=== PATIENT | female | born 1955 | race Caucasian/White ===

== ENCOUNTER → 2020-06-22 | Outpatient (CLI) | payer OTHER ==
[~2020-06-22] MED LIST: APIDRA SOL100 UNIT/1 SQ; ASPIRIN 325MG325 MG PO; ASPIRIN EC81 MG PO; AUGMENTIN 875-1 EACH PO; BYDUREON P2 MG/0.65 SQ; CIPRO500 MG PO; CLINDAMYCIN HC300 MG PO; CYMBALTA60 MG PO; GLUCOSE4 GM PO; HUMALOG 10100 UNITS/ SC; ILEVRO1.7 ML EYERT; IMODIUM CAP 2 MG2 MG PO; IPRAT-ALBUT 0.5-3 ML INH; JARDIANCE25 MG PO; LANTUS SOL100 UNIT/1 SQ; LEVAQUIN500 MG PO; LISINOPRIL30 MG PO; LYRICA200 MG PO; PERCOCET 10-321 EACH PO; PLAVIX 75 MG TA75 MG PO; PLETAL 100 MG100 MG PO; PRAVASTATIN SOD80 MG PO; PREDNISOLONE ACE5 ML EYERT; SYMBICORT 16010.2 GM INH; VENTOLIN HFA 66.7 GM INH; VITAMIN C500 M1 PO
== END ==
LOC: KOH-I 14:45
DX: M14.671 Charcot's joint, right ankle and foot (principal); M14.672 Charcot's joint, left ankle and foot; M19.071 Primary osteoarthritis, right ankle and foot; M19.072 Primary osteoarthritis, left ankle and foot
CPT/HCPCS: 73630

== ENCOUNTER → 2020-07-06 | Outpatient (CLI) | payer OTHER | LOC: NM 07-02 09:55 | DX: M86.9 Osteomyelitis, unspecified (principal); R93.7 Abnormal findings on diagnostic imaging of other parts of musculoskeletal system | CPT/HCPCS: 78315; A9503 ==

== ENCOUNTER → 2020-09-07 | Outpatient (CLI) | payer OTHER | LOC: KOH-I 14:59 | DX: M14.672 Charcot's joint, left ankle and foot (principal); M14.671 Charcot's joint, right ankle and foot; M19.071 Primary osteoarthritis, right ankle and foot; M20.62 Acquired deformities of toe(s), unspecified, left foot; Z98.890 Other specified postprocedural states | CPT/HCPCS: 73630 ==

== ENCOUNTER → 2021-09-07 | Outpatient (CLI) | payer OTHER | LOC: KOH-I 11:57 | DX: Z01.810 Encounter for preprocedural cardiovascular examination (principal); M86.9 Osteomyelitis, unspecified; M19.071 Primary osteoarthritis, right ankle and foot; M21.961 Unspecified acquired deformity of right lower leg | CPT/HCPCS: 73718; 93926 ==

== ENCOUNTER 2021-10-27 18:43 | Inpatient (IN) | payer OTHER ==
[~2021-10-27] VITALS: Ht 170.2 cm; Wt 76.7 kg
[~2021-10-27 18:43] MED LIST changes: +DOXYCYCLINE MO100 MG PO; +PROAIR HFA8.5 GM INH; -VENTOLIN HFA 66.7 GM INH
[2021-10-27 20:03] LABS: HEMOGLOBIN 13.7 gm/dl (12.3-15.3); RED BLOOD COUNT 4.77 M/UL (4.00-5.10); WHITE BLOOD COUNT 16.3 K/UL (4.5-11.0)
[2021-10-28 05:42] LABS: HEMOGLOBIN 13.1 gm/dl (12.3-15.3); RED BLOOD COUNT 4.6 M/UL (4.00-5.10); WHITE BLOOD COUNT 15.4 K/UL (4.5-11.0)
[2021-10-28] MEDS ORDERED: AMLODIPINE BESY10 MG PO (11:57)
[2021-10-28] MEDS ORDERED: ZYVOX600 MG PO (12:00)
[2021-10-28] MEDS ORDERED: PROTONIX40 MG PO (12:03)
[2021-10-28] MEDS ORDERED: CRESTOR40 MG PO (12:03)
[2021-10-28] MEDS ORDERED: IPRAT-ALBUT 0.5-3 ML INH (12:04)
[2021-10-28] MEDS ORDERED: LOSARTAN POTASS50 MG PO (12:07)
[2021-10-28] MEDS ORDERED: LANTUS SOL100 UNIT/1 SQ (12:07)
[2021-10-28] MEDS ORDERED: FEROSUL325 MG PO (12:09)
[2021-10-28] MEDS ORDERED: BUMETANIDE1 MG PO (12:09)
[2021-10-28] MEDS ORDERED: SERTRALINE HCL100 MG PO (12:11)
[2021-10-28] MEDS ORDERED: SPIRIVA HANDIH18 MCG INH (12:14)
[2021-10-28] MEDS ORDERED: PROLIA INJ60 MG/1 ML SC (12:17)
[2021-10-29 03:30] LABS: RED BLOOD COUNT 4.3 M/UL (4.00-5.10)
[2021-10-29 03:45] LABS: WHITE BLOOD COUNT 7.5 K/UL (4.5-11.0)
[2021-10-30 01:34] LABS: RED BLOOD COUNT 4.3 M/UL (4.00-5.10)
[2021-10-30 01:38] LABS: WHITE BLOOD COUNT 10.8 K/UL (4.5-11.0)
[2021-10-31 05:01] LABS: HEMOGLOBIN 12.6 gm/dl (12.3-15.3); RED BLOOD COUNT 4.56 M/UL (4.00-5.10); WHITE BLOOD COUNT 8.1 K/UL (4.5-11.0)
[2021-11-01 04:16] LABS: HEMOGLOBIN 13.7 gm/dl (12.3-15.3); RED BLOOD COUNT 4.87 M/UL (4.00-5.10); WHITE BLOOD COUNT 6.5 K/UL (4.5-11.0)
[2021-11-01] MEDS ORDERED: ASPIRIN EC81 MG PO (11:30)
[2021-11-01] MEDS ORDERED: OMNICEF 300 MG300 MG PO (11:43)
[2021-11-01] MEDS ORDERED: MEDROL DOSEPAK 24 MG PO (12:00)
== END 2021-11-01 14:12 | disposition home or self-care (01) | DRG 853 ==
LOC: ER1 18:43 → CDU 22:10 → PROG CARE 22:10
PROVIDERS: Internal Medicine; Physician Assistant Medical; Podiatrist Foot & Ankle Surgery; ADMIT Internal Medicine
PROC: 3E03329 Introduction of Other Anti-infective into Peripheral Vein, Percutaneous Approach (ICD-10-PCS; 2021-10-27)
PROC: 5A09357 Assistance with Respiratory Ventilation, Less than 24 Consecutive Hours, Continuous Positive Airway Pressure (ICD-10-PCS; 2021-10-27)
PROC: 0J9Q0ZZ Drainage of Right Foot Subcutaneous Tissue and Fascia, Open Approach (ICD-10-PCS; 2021-10-27)
PROC: B24BZZZ Ultrasonography of Heart with Aorta (ICD-10-PCS; 2021-10-29)
PROC: 5A09357 Assistance with Respiratory Ventilation, Less than 24 Consecutive Hours, Continuous Positive Airway Pressure (ICD-10-PCS; 2021-10-29)
PROC: 0JBQ0ZZ Excision of Right Foot Subcutaneous Tissue and Fascia, Open Approach (ICD-10-PCS; principal; 2021-10-29 10:30)
PROC: 5A09357 Assistance with Respiratory Ventilation, Less than 24 Consecutive Hours, Continuous Positive Airway Pressure (ICD-10-PCS; 2021-10-30)
DX: A41.51 Sepsis due to Escherichia coli [E. coli] (principal); J96.21 Acute and chronic respiratory failure with hypoxia; Z20.822 Contact with and (suspected) exposure to COVID-19; J96.22 Acute and chronic respiratory failure with hypercapnia; I50.33 Acute on chronic diastolic (congestive) heart failure; J44.1 Chronic obstructive pulmonary disease with (acute) exacerbation; L03.115 Cellulitis of right lower limb; E11.52 Type 2 diabetes mellitus with diabetic peripheral angiopathy with gangrene; N17.9 Acute kidney failure, unspecified; I13.0 Hypertensive heart and chronic kidney disease with heart failure and stage 1 through stage 4 chronic kidney disease, or unspecified chronic kidney disease; N39.0 Urinary tract infection, site not specified; E78.5 Hyperlipidemia, unspecified; E11.22 Type 2 diabetes mellitus with diabetic chronic kidney disease; N18.32 Chronic kidney disease, stage 3b; M19.90 Unspecified osteoarthritis, unspecified site; G47.33 Obstructive sleep apnea (adult) (pediatric); E11.621 Type 2 diabetes mellitus with foot ulcer; L97.519 Non-pressure chronic ulcer of other part of right foot with unspecified severity; Z79.4 Long term (current) use of insulin; Z79.01 Long term (current) use of anticoagulants; Z79.82 Long term (current) use of aspirin; Z99.81 Dependence on supplemental oxygen; Z90.49 Acquired absence of other specified parts of digestive tract; Z90.710 Acquired absence of both cervix and uterus; Z98.51 Tubal ligation status; Z98.42 Cataract extraction status, left eye; Z98.41 Cataract extraction status, right eye; Z89.421 Acquired absence of other right toe(s); Z88.8 Allergy status to other drugs, medicaments and biological substances; Z88.1 Allergy status to other antibiotic agents; Z88.2 Allergy status to sulfonamides; Z87.891 Personal history of nicotine dependence; Z87.440 Personal history of urinary (tract) infections; Z95.5 Presence of coronary angioplasty implant and graft
CPT/HCPCS: ECHO; 0240U; 36415; 36600; 71045; 73630; 73718; 80048; 80053; 80202; 82550; 82553; 82803; 82962; 83605; 83880; 84484; 85025; 85027; 85610; 85652; 86140; 87040; 87070; 87077; 87186; 87205; 93005; 93306; 93926; 94640; 94660; 94664; 94760; 96361; 96365; 96366; 96367; 96375; 96376; 99285; J1100; J1335; J1644; J1940; J2270; J2405; J2543; J2795; J2920; J3370; J7070; J7120